=== PATIENT | male | born 1940 | race African-American/Black ===

== ENCOUNTER → 2016-07-21 | Outpatient (CLI) | payer MEDICARE, OTHER ==
[2016-07-21 11:29] LABS: ABSOLUTE EOSINOPHILS # (AUTO) 0.1 10^3/uL (0.0-0.6); ABSOLUTE LYMPHOCYTES (AUTO) 1.3 10^3/uL (0.5-4.7); ABSOLUTE MONOCYTES (AUTO) 0.7 10^3/uL (0.1-1.4); ABSOLUTE NEUT (AUTO) 6.6 10^3/uL (1.7-8.2); BASOPHILS % (AUTO) 0.4 % (0-2); HEMATOCRIT 43.9 % (37.9-51.0); HEMOGLOBIN 14.5 g/dL (13.5-17.0); HGB HCT DIFFERENCE -0.4; LYMPHOCYTES % (AUTO) 14.8 % (13-45); MEAN CORPUSCULAR HEMOGLOBIN 30.2 pg (27.0-33.4); MEAN CORPUSCULAR HGB CONC 33.1 g/dL (32.0-36.0); MEAN CORPUSCULAR VOLUME 91 fl (80-97); MONOCYTES % (AUTO) 8.5 % (3-13); RED BLOOD COUNT 4.81 10^6/uL (4.35-5.55); RED CELL DISTRIBUTION WIDTH 13.8 % (11.5-14.0); SEGMENTED NEUTROPHILS % (AUTO) 75.3 % (42-78); WHITE BLOOD COUNT 8.8 10^3/uL (4.0-10.5)
[2016-07-21 12:00] LABS: ALANINE AMINOTRANSFERASE 29 U/L (21-72); ALBUMIN 3.9 g/dL (3.5-5.0); ALKALINE PHOSPHATASE 79 U/L (38-126); ANION GAP 10 (5-19); ASPARTATE AMINO TRANSFERASE 23 U/L (17-59); BILIRUBIN,DIRECT 0.3 mg/dL (0.0-0.4); BILIRUBIN,TOTAL 0.7 mg/dL (0.2-1.3); BLOOD UREA NITROGEN 9 mg/dL (7-20); CALCIUM 9.3 mg/dL (8.4-10.2); CARBON DIOXIDE 30 mmol/L (22-30); CHLORIDE 108 mmol/L (98-107); CHOLESTEROL 154.13 mg/dL (0-200); CREATININE RESULT 0.95 mg/dL (0.52-1.25); Direct HDL 45 mg/dL (>40); GLUCOSE 92 mg/dL (75-110); MAGNESIUM 2.1 mg/dL (1.6-2.3); POTASSIUM 4.1 mmol/L (3.6-5.0); SODIUM 147.8 mmol/L (137-145); TOTAL PROTEIN 7.2 g/dL (6.3-8.2); TRIGLYCERIDES 90 mg/dL (<150)
[2016-07-21 12:14] LABS: DIRECT LDL 72 mg/dL (<100)
[2016-07-22 11:40] LABS: CREATININE URINE 283.5 mg/dL (Not Estab.); MICROALBUMIN URINE 93.8 ug/mL (Not Estab.)
== END ==
LOC: LAB 10:53
PROVIDERS: ATTEND Family Medicine Geriatric Medicine
DX: I10 Essential (primary) hypertension (principal); E78.5 Hyperlipidemia, unspecified; E11.9 Type 2 diabetes mellitus without complications; N40.1 Benign prostatic hyperplasia with lower urinary tract symptoms; J44.9 Chronic obstructive pulmonary disease, unspecified
CPT/HCPCS: 36415; 80053; 80061; 82043; 82570; 83036; 83735; 84153; 84443; 85025

== ENCOUNTER 2016-08-17 20:30 | Emergency (ER) | payer MEDICARE, OTHER ==
[2016-08-17 21:01] LABS: ABSOLUTE BASOPHILS # (AUTO) 0.1 10^3/uL (0.0-0.2); ABSOLUTE EOSINOPHILS # (AUTO) 0.1 10^3/uL (0.0-0.6); ABSOLUTE LYMPHOCYTES (AUTO) 1.4 10^3/uL (0.5-4.7); ABSOLUTE NEUT (AUTO) 7.8 10^3/uL (1.7-8.2); BASOPHILS % (AUTO) 0.6 % (0-2); EOSINOPHILS % (AUTO) 0.6 % (0-6); HEMATOCRIT 45.2 % (37.9-51.0); HEMOGLOBIN 14.8 g/dL (13.5-17.0); HGB HCT DIFFERENCE -0.8; LYMPHOCYTES % (AUTO) 13.6 % (13-45); MEAN CORPUSCULAR HEMOGLOBIN 29.9 pg (27.0-33.4); MEAN CORPUSCULAR HGB CONC 32.8 g/dL (32.0-36.0); MEAN CORPUSCULAR VOLUME 91 fl (80-97); RED BLOOD COUNT 4.95 10^6/uL (4.35-5.55); RED CELL DISTRIBUTION WIDTH 13.4 % (11.5-14.0); SEGMENTED NEUTROPHILS % (AUTO) 75.2 % (42-78); WHITE BLOOD COUNT 10.4 10^3/uL (4.0-10.5)
[2016-08-17 21:10] LABS: PROTHROMBIN TIME 15.6 SEC (11.4-15.4)
--- NOTE | 2016-08-17 21:12 | ER Document Report ---
ED General - General Chief Complaint: Chest Pain Stated Complaint: DIFFICULTY BREATHING Time Seen by Provider: 08/17/16 21:05 Mode of Arrival: Medic Information source: Patient, Relative, Friend TRAVEL OUTSIDE OF THE [place] IN LAST 30 DAYS: No - HPI Notes: Patient is a pleasant 75-year-old black male history of coronary artery disease and carotid artery stenosis and hypertension and dementia and coronary bypass surgery 6 vessel presents emergency department with his neighbor with report that at about 1900 he had chest pain that lasted about 30 minutes. He states pain was worse with movement through the chest, then the pain spontaneously resolved. The patient denied any belching cough shortness of breath nausea vomiting fever or chills. The patient has also had some progressive difficulty with his dementia and he lives alone currently, but his neighbor reports that he gets lost when he goes out driving, he has lost his truck several times and had to use his neighbor to help him find. The patient has difficulty getting to places. He has been noncompliant with his medications because he cannot remember where they are. He was unable to find his medications for EMS which brought him in. Patient recently was driving his truck with a flat tire and was unaware. The patient had a nebulizer machine at home, but on a previous visit to the emergency department one year ago he had forgotten how to use it. According to the neighbor, Adult Protective Services/social work has investigated the patient's home situation in the past, but the neighbor, Trenton Paredes, states he did not give all the information about the patient's forgetfulness and other issues as he did not want to anger the patient. I contacted patient's daughter, Tara Asif at [phone] to make her aware of the situation. Also discussed with other daughter, Brisa Desir, . Both daughters reported a gradual progression of dementia symptoms over the course of the last few years. The patient had a CT scan July 2014 which showed microvascular disease and progressive atrophy. When the patient left his house he did not bring the correct keys with him, and attempts may be made to force entry into the house to attempt to get his medications if they can be found. Patient on questioning appears well kept, clean, and has clean clothes on. He is alert to the year, place and person, but cannot remember the name of the president. Patient is unaware that he had a previous bypass surgery until he is reminded about the surgical scar. The patient initially stated he did not have any family that live close by, until he was reminded. Patient does not drink. He no longer smokes. - Related Data Allergies/Adverse Reactions: No Known Allergies Allergy (Verified 06/18/15 10:34) Past Medical History - General Information source: Patient Cannot obtain history due to: Dementia - Social History Smoking Status: Former Smoker Frequency of alcohol use: None Drug Abuse: None Lives with: Alone Family History: Reviewed & Not Pertinent - Past Medical History Cardiac Medical History: Reports: Hx Coronary Artery Disease - carotid artery stenosis, Hx Hypertension Denies: Hx Heart Attack Pulmonary Medical History: Denies: Hx Asthma, Hx Bronchitis, Hx COPD, Hx Pneumonia Neurological Medical History: Denies: Hx Cerebrovascular Accident, Hx Seizures Musculoskeltal Medical History: Reports Hx Arthritis Past Surgical History: Reports: Hx Cardiac Surgery - CABG - Immunizations Hx Diphtheria, Pertussis, Tetanus Vaccination: No Review of Systems - Review of Systems Notes: REVIEW OF SYSTEMS: CONSTITUTIONAL : Denies fever, chills, or sweats. Denies recent illness. EENT: Denies eye, ear, throat, or mouth pain or symptoms. Denies nasal or sinus congestion or discharge. Denies throat, tongue, or mouth swelling or difficulty swallowing. CARDIOVASCULAR: Denies palpitations or racing or irregular heart beat. Denies ankle edema. Patient currently denies chest pain. RESPIRATORY: Denies cough, cold, or chest congestion. Denies shortness of breath, difficulty breathing, or wheezing. GASTROINTESTINAL: Denies abdominal pain or distention. Denies nausea, vomiting , or diarrhea. Denies blood in vomitus, stools, or per rectum. Denies black, tarry stools. Denies constipation. GENITOURINARY: Denies difficulty urinating, painful urination, burning, frequency, blood in urine, or discharge. MUSCULOSKELETAL: Denies back or neck pain or stiffness. Denies joint pain or swelling. SKIN: Denies rash, lesions or sores. HEMATOLOGIC : Denies easy bruising or bleeding. LYMPHATIC: Denies swollen, enlarged glands. NEUROLOGICAL: Denies passing out or loss of consciousness. Denies dizziness or lightheadedness. Denies headache. Denies weakness or paralysis or loss of use of either side. Denies problems with gait or speech. Denies sensory loss, numbness, or tingling. Denies seizures. Patient is unaware of his altered state fully. He does admit that he is forgetful of certain things. PSYCHIATRIC: Denies anxiety or stress. Denies depression, suicidal ideation, or homicidal ideation. ALL OTHER SYSTEMS REVIEWED AND NEGATIVE. Dictation was performed using [employer] voice recognition software Physical Exam - Vital signs Vitals: Pulse Ox 97 08/17/16 20:32 - Notes Notes: PHYSICAL EXAMINATION: GENERAL: Well-appearing, well-nourished and in no acute distress. HEAD: Atraumatic, normocephalic. EYES: Pupils equal round and reactive to light, extraocular movements intact, sclera anicteric, conjunctiva are normal. ENT: Nares patent, oropharynx clear without exudates. Moist mucous membranes. NECK: Normal range of motion, supple without lymphadenopathy LUNGS: Breath sounds clear to auscultation bilaterally and equal. No wheezes rales or rhonchi. HEART: Tachy regular rhythm 112 with 1/6 systolic ejection murmur best auscultated over the apex. Midline surgical scar status post bypass surgery noted. ABDOMEN: Soft, nontender, nondistended abdomen. No guarding, no rebound. No masses appreciated. Musculoskeletal: Normal range of motion. No cyanosis. Trace bilateral lower extremity edema. NEUROLOGICAL: Cranial nerves grossly intact. Normal speech, normal gait. Normal sensory, motor exams patient is alert to Year and person and place, but does not know the president. Patient does not recall that he had a previous cardiac bypass surgery. He also has is having trouble recalling events of the evening earlier. PSYCH: Normal mood, normal affect. SKIN: Warm, Dry, normal turgor, no rashes or lesions noted. Course - Re-evaluation Re-evalutation: 08/17/16 22:44 Old records were reviewed which showed previously the patient was on medications Diovan, tamsulosin, Zocor, lisinopril, Aricept, diltiazem, atenolol , aspirin, nebulizers, albuterol. Patient gave the neighbor the wrong liu, so the neighbors contacted the daughter and they are going in now to try to gain access to the house to obtain information. 08/18/16 02:42 The daughter and the neighbor were unable to get into the house to obtain information and confirm the medications. Patient remained without complaint, and he forgot that he had chest pain earlier. At one point, the patient asked why he was in the emergency department. Initial troponin negative at 0.016 with 4 hour repeat troponin elevated at 0.128. Supplemental potassium given by mouth. Given the serial change, there is concern for unstable angina versus acute subendocardial MN. Discussion was undertaken with the patient's Family, and they reported that approximately 15 years ago he had 6 vessel coronary bypass surgery performed in [place]. On Patient had already received aspirin, and he was pain-free. Patient was given Lopressor 5 mg IV, which he tolerated well. Vital signs remained stable. Patient was given Lopressor 50 mg by mouth. Discussion was undertaken with the patient and family and they were in agreement with the patient being transferred to a definitive interventional cardiology facility. Discussion was undertaken with , and he accepted the patient in transfer to [facility]. Patient will also need an evaluation to determine competence and safety in returning home without further assistance. 08/18/16 02:50 - Vital Signs Vital signs: Temp Pulse Resp BP Pulse Ox 14 175/150 H 97 08/18/16 02:01 08/18/16 02:01 08/18/16 00:00 - Laboratory Result Diagrams: 08/17/16 20:45 08/17/16 20:45 Laboratory results interpreted by me: 08/17/16 08/17/16 20:45 20:45 PT 15.6 H Potassium 3.0 L* Creatinine 1.33 H Est GFR (Non-Af Amer) 52 L Glucose 133 H Creatine Kinase 259 H - EKG Interpretation by Mt EKG shows normal: Sinus rhythm Additional EKG results interpreted by me: 08/17/16 22:46 EKG as interpreted by ak showed sinus tachycardia heart rate of 114 with left anterior fascicular block. There was no gross evidence for acute MN or ischemia noted. One PVC noted. There is no significant change from previous EKG from 06/20/15 with exception of the tachycardia. Critical Care Note - Critical Care Note Total time excluding time spent on procedures (mins): 89 Discharge - Discharge Clinical Impression: Hypokalemia, Medically noncompliant, Elevated troponin level Chest pain Qualifiers: Chest pain type: unspecified Qualified Code(s): R07.9 - Chest pain, unspecified Dementia Qualifiers: Dementia type: unspecified type Dementia behavioral disturbance: without behavioral disturbance Qualified Code(s): F03.90 - Unspecified dementia without behavioral disturbance Clinical Impression: (Ruled Out): Dementia arising in the senium and presenium Condition: Stable Disposition: [facility]
[2016-08-17 21:23] LABS: ALANINE AMINOTRANSFERASE 37 U/L (21-72); ALBUMIN 3.9 g/dL (3.5-5.0); ALKALINE PHOSPHATASE 92 U/L (38-126); ANION GAP 16 (5-19); ASPARTATE AMINO TRANSFERASE 21 U/L (17-59); BILIRUBIN,DIRECT 0.4 mg/dL (0.0-0.4); BILIRUBIN,TOTAL 1.1 mg/dL (0.2-1.3); BLOOD UREA NITROGEN 12 mg/dL (7-20); CALCIUM 8.9 mg/dL (8.4-10.2); CARBON DIOXIDE 23 mmol/L (22-30); CHLORIDE 106 mmol/L (98-107); CREATINE KINASE 259 U/L (55-170); CREATININE RESULT 1.33 mg/dL (0.52-1.25); GLUCOSE 133 mg/dL (75-110); SODIUM 144.6 mmol/L (137-145)
--- NOTE | 2016-08-17 21:32 | RADIOLOGY REPORT (SQ) ---
EXAM DESCRIPTION: CHEST SINGLE VIEW COMPLETED DATE/TIME: 08/17/2016 9:17 pm REASON FOR STUDY: CP COMPARISON: June 2015 EXAM PARAMETERS: NUMBER OF VIEWS: One view. TECHNIQUE: Single frontal radiographic view of the chest acquired. RADIATION DOSE: NA LIMITATIONS: None. FINDINGS: LUNGS AND PLEURA: No opacities, masses or pneumothorax. No pleural effusion. MEDIASTINUM AND HILAR STRUCTURES: No masses. Contour normal. HEART AND VASCULAR STRUCTURES: Heart normal in size. Normal vasculature. BONES: No acute findings. HARDWARE: Patient is status post median sternotomy. OTHER: No other significant finding. IMPRESSION: NO ACUTE RADIOGRAPHIC FINDING IN THE CHEST. TECHNICAL DOCUMENTATION: JOB ID: [id number]
[2016-08-17 21:34] LABS: CREATINE KINASE MB 1.77 ng/mL (<4.55); TROPONIN I 0.016 ng/mL
--- NOTE | 2016-08-17 21:34 | EKG REPORT ---
SEVERITY:- ABNORMAL ECG - SINUS TACHYCARDIA VENTRICULAR PREMATURE COMPLEX LEFT ANTERIOR FASCICULAR BLOCK ANTERIOR Q WAVES, POSSIBLY DUE TO LVH : Confirmed by: Flaco Junior MD 17-Aug-2016 21:34:21
[2016-08-17 23:27] LABS: THYROID STIMULATING HORMONE 1.54 uIU/mL (0.47-4.68)
[2016-08-18] MEDS ORDERED: POTASSIUM CHLORIDE 10 MEQ TABLET.SA PO ONE (00:35)
[2016-08-18] MEDS ORDERED: METOPROLOL TARTRATE PF/INJ 5 MG/5 ML SDV IV ONE (01:38)
[2016-08-18] MEDS ORDERED: LORAZEPAM INJ 2 MG/1 ML VIAL IV ONE (01:44)
[2016-08-18] MEDS ORDERED: METOPROLOL TARTRATE 50 MG TABLET PO ONE (02:33)
[2016-08-18] MEDS ORDERED: METOPROLOL TARTRATE 25 MG TABLET PO ONE (03:16)
[2016-08-18 07:01] LABS: APPEARANCE,URINE CLOUDY; BILIRUBIN,URINE NEGATIVE (NEGATIVE); GLUCOSE, URINE NEGATIVE (NEGATIVE); KETONES,URINE NEGATIVE (NEGATIVE); LEUKOCYTE ESTERASE,URINE TRACE (NEGATIVE); NITRITE,URINE NEGATIVE (NEGATIVE); PROTEIN,URINE 100 mg/dL (NEGATIVE); URINE SPECIFIC GRAVITY 1.034
[2016-08-18 07:13] LABS: URINE BARBITURATES SCREEN NEGATIVE; URINE METHADONE SCREEN NEGATIVE; URINE OPIATES LOW NEGATIVE; URINE PHENCYCLIDINE SCREEN NEGATIVE
[2016-08-18 07:49] VITALS: BP 187/92
== END 2016-08-18 08:05 | disposition short-term general hospital (02) ==
LOC: ER 20:30
DX: R07.9 Chest pain, unspecified (principal); R74.8 Abnormal levels of other serum enzymes; E87.6 Hypokalemia; F03.90 Unspecified dementia, unspecified severity, without behavioral disturbance, psychotic disturbance, mood disturbance, and anxiety; T50.906A Underdosing of unspecified drugs, medicaments and biological substances, initial encounter; Z91.130 Patient's unintentional underdosing of medication regimen due to age-related debility; Z91.14 Patient's other noncompliance with medication regimen; I49.3 Ventricular premature depolarization; I44.4 Left anterior fascicular block; R01.1 Cardiac murmur, unspecified; R00.0 Tachycardia, unspecified; I25.10 Atherosclerotic heart disease of native coronary artery without angina pectoris; I10 Essential (primary) hypertension; Z60.2 Problems related to living alone; Z87.891 Personal history of nicotine dependence; Z95.1 Presence of aortocoronary bypass graft
CPT/HCPCS: 93005; 99291; 96374; 96375; 36415; 84439; 82553; 82550; 83735; 84443; 85025; 85610; 80053; 81001; 84484; 80307; 83880; 71010; 93010; J3490; J2060; A9270 ×2

== ENCOUNTER 2016-08-24 10:15 | Emergency (ER) | payer MEDICARE, OTHER ==
--- NOTE | 2016-08-24 10:37 | RADIOLOGY REPORT (SQ) ---
EXAM DESCRIPTION: CHEST SINGLE VIEW COMPLETED DATE/TIME: 08/24/2016 10:27 am REASON FOR STUDY: altered COMPARISON: 08/17/2016. EXAM PARAMETERS: NUMBER OF VIEWS: One view. TECHNIQUE: Single frontal radiographic view of the chest acquired. RADIATION DOSE: NA LIMITATIONS: None. FINDINGS: LUNGS AND PLEURA: No opacities, masses or pneumothorax. No pleural effusion. MEDIASTINUM AND HILAR STRUCTURES: No masses. Contour normal. HEART AND VASCULAR STRUCTURES: Heart normal in size. Normal vasculature. BONES: No acute findings. HARDWARE: Sternotomy wires and coronary bypass markers. OTHER: No other significant finding. IMPRESSION: NO ACUTE RADIOGRAPHIC FINDING IN THE CHEST. TECHNICAL DOCUMENTATION: JOB ID: [id number]
--- NOTE | 2016-08-24 10:38 | ER Document Report ---
ED General - General Stated Complaint: CONFUSION Time Seen by Provider: 08/24/16 10:19 Mode of Arrival: Ambulatory Information source: Patient Notes: 75 yr old male with dementia presents by EMS after being found by WENDI patel. Pt denies any concerns, states he was looking for his daughters house. TRAVEL OUTSIDE OF THE [place] IN LAST 30 DAYS: No - HPI Onset: Just prior to arrival Onset/Duration: Sudden Quality of pain: No pain Severity: None Pain Level: Denies Associated symptoms: None Exacerbated by: Denies Relieved by: Denies Similar symptoms previously: Yes Recently seen / treated by doctor: Yes - Related Data Allergies/Adverse Reactions: No Known Allergies Allergy (Verified 06/18/15 10:34) Past Medical History - Social History Smoking Status: Never Smoker Cigarette use (# per day): No Chew tobacco use (# tins/day): No Smoking Education Provided: No Family History: Reviewed & Not Pertinent - Past Medical History Cardiac Medical History: Reports: Hx Coronary Artery Disease - carotid artery stenosis, Hx Hypertension Denies: Hx Heart Attack Pulmonary Medical History: Denies: Hx Asthma, Hx Bronchitis, Hx COPD, Hx Pneumonia Neurological Medical History: Denies: Hx Cerebrovascular Accident, Hx Seizures Musculoskeltal Medical History: Reports Hx Arthritis Past Surgical History: Reports: Hx Cardiac Surgery - CABG - Immunizations Hx Diphtheria, Pertussis, Tetanus Vaccination: No Review of Systems - Review of Systems Notes: REVIEW OF SYSTEMS: CONSTITUTIONAL : Patient covered in sweat EENT: Denies eye, ear, throat, or mouth pain or symptoms. Denies nasal or sinus congestion or discharge. Denies throat, tongue, or mouth swelling or difficulty swallowing. CARDIOVASCULAR: Denies chest pain. Denies palpitations or racing or irregular heart beat. Denies ankle edema. RESPIRATORY: Denies cough, cold, or chest congestion. Denies shortness of breath, difficulty breathing, or wheezing. GASTROINTESTINAL: Denies abdominal pain or distention. Denies nausea, vomiting , or diarrhea. Denies blood in vomitus, stools, or per rectum. Denies black, tarry stools. Denies constipation. GENITOURINARY: Denies difficulty urinating, painful urination, burning, frequency, blood in urine, or discharge. MUSCULOSKELETAL: Denies back or neck pain or stiffness. Denies joint pain or swelling. SKIN: Denies rash, lesions or sores. HEMATOLOGIC : Denies easy bruising or bleeding. LYMPHATIC: Denies swollen, enlarged glands. NEUROLOGICAL: Denies confusion or altered mental status. Denies passing out or loss of consciousness. Denies dizziness or lightheadedness. Denies headache. Denies weakness or paralysis or loss of use of either side. Denies problems with gait or speech. Denies sensory loss, numbness, or tingling. Denies seizures. PSYCHIATRIC: Denies anxiety or stress. Denies depression, suicidal ideation, or homicidal ideation. ALL OTHER SYSTEMS REVIEWED AND NEGATIVE. Dictation was performed using [email or web address] recognition software PHYSICAL EXAMINATION: GENERAL: Well-appearing, well-nourished and in no acute distress. HEAD: Atraumatic, normocephalic. EYES: Pupils equal round and reactive to light, extraocular movements intact, sclera anicteric, conjunctiva are normal. ENT: Nares patent, oropharynx clear without exudates. Moist mucous membranes. NECK: Normal range of motion, supple without lymphadenopathy LUNGS: Breath sounds clear to auscultation bilaterally and equal. No wheezes rales or rhonchi. HEART: Regular rate and rhythm without murmurs ABDOMEN: Soft, nontender, nondistended abdomen. No guarding, no rebound. No masses appreciated. Musculoskeletal: Normal range of motion, no pitting or edema. No cyanosis. NEUROLOGICAL: Cranial nerves grossly intact. Normal speech, normal gait. Normal sensory, motor exams Oriented to person place but not time PSYCH: Normal mood, normal affect. SKIN: sweat Covered shirt noted Course - Re-evaluation Re-evalutation: 08/24/16 10:43 Patient's presentation is consistent with dementia related confusion, I contacted the patient's daughter and she will be coming shortly to see him, 08/24/16 13:54 Labwork notes a mildly elevated lactic acid however patient is afebrile has no complaints workup otherwise appears normal. I have very low suspicion that this is anything life-threatening, family member that I contact and is here as well as power of media services specialist, we will determine further care for the patient otherwise he is stable for discharge After performing a Medical Screening Examination, I estimate there is LOW risk for INTRACRANIAL HEMORRHAGE, ISCHEMIC CVA, MALIGNANT DYSRHYTHMIA, ACUTE CORONARY SYNDROME, MENINGITIS, PULMONARY EMBOLISM, or SEPSIS thus I consider the discharge disposition reasonable. I have reevaluated this patient multiple times and no significant life threatening changes are noted. The patient and I have discussed the diagnosis and risks, and we agree with discharging home with close follow-up with the understanding that symptoms and presentations can change. We also discussed returning to the Emergency Department immediately if new or worsening symptoms occur. We have discussed the symptoms which are most concerning (e.g., changing or worsening pain, weakness, vomiting, fever) that necessitate immediate return. - Laboratory Result Diagrams: 08/24/16 11:40 08/24/16 11:40 Laboratory results interpreted by me: 08/24/16 08/24/16 08/24/16 11:40 11:40 13:15 Seg Neutrophils % 78.8 H Lymphocytes % 11.7 L Lactic Acid 2.2 H Urine Protein 100 H Urine Ketones 20 H Urine Bilirubin SMALL H Urine Urobilinogen 4.0 H Ur Leukocyte Esterase SMALL H Discharge - Discharge Clinical Impression: Dementia Qualifiers: Dementia type: unspecified type Dementia behavioral disturbance: without behavioral disturbance Qualified Code(s): F03.90 - Unspecified dementia without behavioral disturbance Condition: Stable Instructions: Dementia ([facility]) Additional Instructions: Patient should no longer be allowed to drive due to worsening dementia. Referrals: DEVORAH GREGORY MD [ACTIVE STAFF] - Follow up tomorrow
[2016-08-24 11:54] LABS: ABSOLUTE BASOPHILS # (AUTO) 0.1 10^3/uL (0.0-0.2); ABSOLUTE LYMPHOCYTES (AUTO) 1.1 10^3/uL (0.5-4.7); ABSOLUTE MONOCYTES (AUTO) 0.8 10^3/uL (0.1-1.4); ABSOLUTE NEUT (AUTO) 7.1 10^3/uL (1.7-8.2); BASOPHILS % (AUTO) 0.6 % (0-2); EOSINOPHILS % (AUTO) 0.4 % (0-6); HEMATOCRIT 46.8 % (37.9-51.0); HEMOGLOBIN 15.7 g/dL (13.5-17.0); HGB HCT DIFFERENCE 0.3; LYMPHOCYTES % (AUTO) 11.7 % (13-45); MEAN CORPUSCULAR HEMOGLOBIN 30.3 pg (27.0-33.4); MEAN CORPUSCULAR HGB CONC 33.5 g/dL (32.0-36.0); MEAN CORPUSCULAR VOLUME 91 fl (80-97); MONOCYTES % (AUTO) 8.5 % (3-13); RED BLOOD COUNT 5.17 10^6/uL (4.35-5.55); RED CELL DISTRIBUTION WIDTH 13.4 % (11.5-14.0); SEGMENTED NEUTROPHILS % (AUTO) 78.8 % (42-78)
[2016-08-24 12:13] LABS: ALANINE AMINOTRANSFERASE 36 U/L (21-72); ALKALINE PHOSPHATASE 89 U/L (38-126); ASPARTATE AMINO TRANSFERASE 34 U/L (17-59); BILIRUBIN,DIRECT 0.4 mg/dL (0.0-0.4); BILIRUBIN,TOTAL 0.8 mg/dL (0.2-1.3); BLOOD UREA NITROGEN 10 mg/dL (7-20); CALCIUM 9.2 mg/dL (8.4-10.2); CARBON DIOXIDE 29 mmol/L (22-30); CREATININE RESULT 1.11 mg/dL (0.52-1.25); GLUCOSE 98 mg/dL (75-110); POTASSIUM 3.7 mmol/L (3.6-5.0); SODIUM 144.2 mmol/L (137-145); TOTAL PROTEIN 7.7 g/dL (6.3-8.2)
[2016-08-24 12:24] LABS: ANION GAP 11 (5-19); CHLORIDE 104 mmol/L (98-107)
[2016-08-24 13:02] LABS: PROTHROMBIN TIME 14.6 SEC (11.4-15.4)
[2016-08-24] MEDS ORDERED: LORAZEPAM 1 MG TABLET PO ONE (13:11)
[2016-08-24 13:50] LABS: APPEARANCE,URINE TURBID; BILIRUBIN,URINE SMALL (NEGATIVE); GLUCOSE, URINE NEGATIVE (NEGATIVE); KETONES,URINE 20 mg/dL (NEGATIVE); LEUKOCYTE ESTERASE,URINE SMALL (NEGATIVE); NITRITE,URINE NEGATIVE (NEGATIVE); PROTEIN,URINE 100 mg/dL (NEGATIVE); URINE SPECIFIC GRAVITY 1.033
--- NOTE | 2016-08-24 19:21 | EKG REPORT ---
SEVERITY:- ABNORMAL ECG - SINUS TACHYCARDIA VENTRICULAR TRIGEMINY ANTERIOR Q WAVES, POSSIBLY DUE TO LVH [facility] : Confirmed by: Flaco Junior MD 24-Aug-2016 19:20:33
== END 2016-08-24 14:12 | disposition home or self-care (01) ==
LOC: ER 10:15
DX: F03.90 Unspecified dementia, unspecified severity, without behavioral disturbance, psychotic disturbance, mood disturbance, and anxiety (principal); I25.10 Atherosclerotic heart disease of native coronary artery without angina pectoris; I10 Essential (primary) hypertension; Z95.1 Presence of aortocoronary bypass graft
CPT/HCPCS: 36415; 71010; 80053; 81001; 83605; 85025; 85610; 87040; 87086; 93005; 93010; 99285

== ENCOUNTER 2016-09-14 22:07 | Emergency (ER) | payer MEDICARE, OTHER ==
--- NOTE | 2016-09-14 23:24 | ER Document Report ---
ED General - General Chief Complaint: ETOH Abuse Stated Complaint: POSSIBLE ALTERED BEHAVIOR Time Seen by Provider: 09/14/16 23:18 Notes: 75-year-old male with known dementia and history of wandering presents brought in by police for being found outside of a [employer] restaurant. He knows the year and knows his name but was not sure how he ended up with rigors. He denies alcohol. Review of his chart shows that he has been here for multiple different issues including confusion. Lives alone. TRAVEL OUTSIDE OF THE [place] IN LAST 30 DAYS: No - Related Data Allergies/Adverse Reactions: No Known Allergies Allergy (Verified 06/18/15 10:34) Past Medical History - General Information source: Patient - Social History Smoking Status: Former Smoker Chew tobacco use (# tins/day): No Frequency of alcohol use: None Drug Abuse: None Family History: Reviewed & Not Pertinent - Past Medical History Cardiac Medical History: Reports: Hx Coronary Artery Disease - carotid artery stenosis, Hx Hypertension Denies: Hx Heart Attack Pulmonary Medical History: Denies: Hx Asthma, Hx Bronchitis, Hx COPD, Hx Pneumonia Neurological Medical History: Denies: Hx Cerebrovascular Accident, Hx Seizures Musculoskeltal Medical History: Reports Hx Arthritis Past Surgical History: Reports: Hx Cardiac Surgery - CABG - Immunizations Hx Diphtheria, Pertussis, Tetanus Vaccination: No Review of Systems - Review of Systems Notes: R REVIEW OF SYSTEMS GEN: Denies fever, chills, weight loss ENT: Denies sore throat, nasal discharge, ear pain EYES: Denies blurry vision, eye pain, discharge CV: Denies chest pain, palpitations, edema RESP: Denies cough, shortness of breath, wheezing GI: Denies abdominal pain, nausea, vomiting, diarrhea MSK: Denies joint pain/swelling, edema, SKIN: Denies rash, skin lesions LYMPH: Denies swollen glands/lymph nodes NEURO: Denies headache, focal weakness or numbness, dizziness PSYCH: Denies depression, suicidal or homicidal ideation PHYSICAL EXAMINATION General: No acute distress, well-nourished Head: Atraumatic, normocephalic ENT: Mouth normal, oropharynx moist, no exudates or tonsillar enlargement Eyes: Conjunctiva normal, pupils equal, lids normal Neck: No JVD, supple, no guarding CVS: Normal rate, regular rhythm, no murmurs Resp: No resp distress, equal and normal breath sounds bilaterally GI: Nondistended, soft, no tenderness to palpation, no rebound or guarding Ext: No deformities, no edema, normal range of motion in upper and lower ext Back: No CVA or midline TTP Skin: No rash, warm Lymphatic: No lymphadeopathy noted Neuro: Awake, alert. Face symmetric. GCS 15. Alert and oriented with name date. Physical Exam - Vital signs Vitals: Temp Pulse Resp BP Pulse Ox 97.3 F 94 16 144/73 H 97 09/14/16 22:13 09/14/16 22:13 09/14/16 22:13 09/14/16 22:13 09/14/16 22:13 Course - Re-evaluation Re-evalutation: 09/14/16 23:21 75-year-old male presents wandering. No dementia. He has normal vital signs were I think that infection or metabolic problem is much less likely and this is just waxing and waning of his dementia. Will attempt to contact family and and right home but I do not think he needs a workup - Vital Signs Vital signs: Temp Pulse Resp BP Pulse Ox 97.3 F 94 16 144/73 H 97 09/14/16 22:13 09/14/16 22:13 09/14/16 22:13 09/14/16 22:13 09/14/16 22:13 Discharge - Discharge Clinical Impression: Confusion Condition: Good Disposition: HOME, SELF-CARE Instructions: Dementia ([facility])
[2016-09-15 00:06] VITALS: BP 148/82
== END 2016-09-15 00:10 | disposition home or self-care (01) ==
LOC: ER 22:07
DX: F03.91 Unspecified dementia, unspecified severity, with behavioral disturbance (principal); Z91.83 Wandering in diseases classified elsewhere; I25.10 Atherosclerotic heart disease of native coronary artery without angina pectoris; I10 Essential (primary) hypertension; Z87.891 Personal history of nicotine dependence; Z95.1 Presence of aortocoronary bypass graft
CPT/HCPCS: 99285

== ENCOUNTER 2016-11-08 04:52 | Emergency (ER) | payer MEDICARE, OTHER ==
--- NOTE | 2016-11-08 05:40 | ER Document Report ---
HPI - HPI Patient complains to provider of: wandering Context: Patient is a 76-year-old male with a history of dementia that comes emergency department for chief complaint of wandering. Patient was found walking on the road at 4 AM this morning, he was brought in by EMS. I asked why he came to the hospital and he states "I do not know, they asked me if I wanted to go to the hospital, and I said yes". He states he has no complaints, he feels good, he is slightly hungry, he states that when he woke up he got up and he felt like he would want to go out and find something to do, he states he needs something to do, he states he started walking and he did not realize it was for him in the morning. He states he thought it was just before sun up. - CARDIOVASCULAR Cardiovascular: DENIES: Chest pain Past Medical History - General Information source: Patient - Social History Smoking Status: Never Smoker Frequency of alcohol use: None Drug Abuse: None Lives with: Family Family History: Reviewed & Not Pertinent - Past Medical History Cardiac Medical History: Reports: Hx Coronary Artery Disease - carotid artery stenosis, Hx Hypertension Denies: Hx Heart Attack Pulmonary Medical History: Denies: Hx Asthma, Hx Bronchitis, Hx COPD, Hx Pneumonia Neurological Medical History: Denies: Hx Cerebrovascular Accident, Hx Seizures Musculoskeltal Medical History: Reports Hx Arthritis Past Surgical History: Reports: Hx Cardiac Surgery - CABG - Immunizations Hx Diphtheria, Pertussis, Tetanus Vaccination: No Vertical Provider Document - CONSTITUTIONAL General Appearance: WD/WN, No Apparent Distress - INFECTION CONTROL TRAVEL OUTSIDE OF THE [place] IN LAST 30 DAYS: No - HEENT HEENT: Atraumatic, Normal ENT Exam, Normocephalic - NECK Neck: Normal Inspection - RESPIRATORY Respiratory: Breath Sounds Normal, No Respiratory Distress O2 Sat by Pulse Oximetry: 99 - CARDIOVASCULAR Cardiovascular: Regular Rate, Regular Rhythm - GI/ABDOMEN Gastrointestinal: Abdomen Soft, Abdomen Non-Tender - MUSCULOSKELETAL/EXTREMETIES Musculoskeletal/Extremeties: MAEW, FROM, Non-Tender - NEURO Level of Consciousness: Awake, Alert, Appropriate. negative: Inappropriate, Confused, Agitated, Sedated, Non-Verbal, Obtunded - DERM Integumentary: Warm, Dry, No Rash Course - Re-evaluation Re-evalutation: Patient is actually not confused, he is oriented to events, self, and location. He does intermittently make confused statements but based on his previous visits and notes this appears to be his baseline of waxing and waning dementia symptoms. Patient does not have a phone with him, he cannot remember his contact numbers, he does not have a contact listed in the system. Feeding patient, will consult adult protective caseworker. Patient states he is in full agreement with having a adult protective caseworker follow-up at his house, he states that he is ready to go home after he eats. He has money for a cab. He knows where he lives. - Vital Signs Vital signs: Temp Pulse Resp BP Pulse Ox 97.5 F 81 18 160/78 H 99 11/08/16 04:57 11/08/16 04:57 11/08/16 04:57 11/08/16 04:57 11/08/16 04:57 Discharge - Discharge Clinical Impression: Wandering Dementia Qualifiers: Dementia type: unspecified type Dementia behavioral disturbance: without behavioral disturbance Qualified Code(s): F03.90 - Unspecified dementia without behavioral disturbance Condition: Stable Disposition: HOME, SELF-CARE Additional Instructions: Your physical examination does not indicate any concerning abnormalities. We have a adult protective caseworker consult placed to try to evaluate your home situation and see if we can offer assistance. They will be following up with you. Follow up with your Provider. Return to the ED for any concerning symptoms or if something is not right. Forms: Elevated Blood Pressure
[2016-11-08 08:05] VITALS: BP 125/72
== END 2016-11-08 08:05 | disposition home or self-care (01) ==
LOC: ER 04:52
DX: F03.91 Unspecified dementia, unspecified severity, with behavioral disturbance (principal); Z91.83 Wandering in diseases classified elsewhere; I25.10 Atherosclerotic heart disease of native coronary artery without angina pectoris; I10 Essential (primary) hypertension; Z95.1 Presence of aortocoronary bypass graft
CPT/HCPCS: 99282

== ENCOUNTER 2016-11-15 19:27 | Emergency (ER) | payer MEDICARE, OTHER ==
--- NOTE | 2016-11-15 19:51 | ER Document Report ---
ED General - General Mode of Arrival: Ambulatory Information source: Patient TRAVEL OUTSIDE OF THE [place] IN LAST 30 DAYS: No - HPI Onset: This morning Associated symptoms: None Exacerbated by: Denies Relieved by: Denies Similar symptoms previously: No Recently seen / treated by doctor: No <KERVIN MOYA - Last Filed: 11/15/16 21:32> <ASUNCION AU - Last Filed: 11/16/16 00:24> <LIZ CARRANZA - Last Filed: 11/16/16 01:31> - General Stated Complaint: ALTERED MENTAL STATUS Time Seen by Provider: 11/15/16 19:34 Notes: Patient is a 76-year-old male that presents to the emergency department today with complaints of accidentally taking his medications twice today. Patient is demented at baseline. Patient's POA is at the bedside. The POA gave him his morning medications this morning as he normally does. Daughter at the bedside states she came over to see her father this afternoon and asked him if he had taken his medicine and he said no so she gave him another dose. Patient has no complaints. (KERVIN MOYA) - Related Data Allergies/Adverse Reactions: No Known Allergies Allergy (Verified 11/15/16 23:15) Past Medical History - General Information source: Patient - Social History Smoking Status: Former Smoker Cigarette use (# per day): No Frequency of alcohol use: None Drug Abuse: None Lives with: Alone Family History: Reviewed & Not Pertinent - Past Medical History Cardiac Medical History: Reports: Hx Coronary Artery Disease - carotid artery stenosis, Hx Hypertension Musculoskeltal Medical History: Reports Hx Arthritis Past Surgical History: Reports: Hx Cardiac Surgery - CABG - Immunizations Hx Diphtheria, Pertussis, Tetanus Vaccination: No <KERVIN MOYA - Last Filed: 11/15/16 21:32> Review of Systems - Review of Systems Constitutional: No symptoms reported EENT: No symptoms reported Cardiovascular: No symptoms reported Respiratory: No symptoms reported Gastrointestinal: No symptoms reported Genitourinary: No symptoms reported Male Genitourinary: No symptoms reported Musculoskeletal: No symptoms reported Skin: No symptoms reported Hematologic/Lymphatic: No symptoms reported Neurological/Psychological: No symptoms reported -: Yes All other systems reviewed and negative <KERVIN MOYA - Last Filed: 11/15/16 21:32> Physical Exam <KERVIN MOYA - Last Filed: 11/15/16 21:32> <ANGELYASUNCION - Last Filed: 11/16/16 00:24> <LIZ CARRANZA - Last Filed: 11/16/16 01:31> - Vital signs Vitals: Resp 16 11/15/16 19:47 - Notes Notes: Physical Exam: General: Alert, pleasantly demented HEENT: Normocephalic. Atraumatic. PERRL. Extraocular movements intact. Oropharynx clear. Neck: Supple. Non-tender. Respiratory: No respiratory distress. Clear and equal breath sounds bilaterally. Cardiovascular: Bradycardic, regular rhythm. Abdominal: Normal Inspection. Non-tender. No distension. Normal Bowel Sounds. Back: Non-tender. No deformity or step off. Extremities: Moves all four extremities. Upper extremities: Normal inspection. Normal ROM. Lower extremities: Normal inspection. No edema. Normal ROM. Neurological: Pleasantly demented. Normal speech. Psychological: Normal affect. Normal Mood. Skin: Warm. Dry. Normal color. (KERVIN MOYA) Course - Laboratory Result Diagrams: 11/15/16 20:05 11/15/16 20:05 <KERVIN MOYA - Last Filed: 11/15/16 21:32> - Laboratory Result Diagrams: 11/15/16 20:05 11/15/16 20:05 - EKG Interpretation by Me EKG shows normal: Sinus rhythm, Byron, Intervals, QRS Complexes. abnormal: ST-T Waves - Inferior and lateral T-wave inversions Rate: Bradycardia - 48 Byron/QRS: LAHB/LAFB When compared to previous EKG there are: Changes noted - The T-wave inversions are new compared to previous EKGs. <ASUNCION AU - Last Filed: 11/16/16 00:24> - Laboratory Result Diagrams: 11/15/16 20:05 11/15/16 20:05 <LIZ CARRANZA - Last Filed: 11/16/16 01:31> - Re-evaluation Re-evalutation: 11/16/16 01:30 Patient is currently sleeping. The tech just and me an EKG. EKG does have some very mild ST segment elevation patient in lead V2 as well as ST segment depression in the [address] Balbuena, patient's physician, informed me that the original EKG did look like this. That is why he got a troponin delta troponin. Both of these are negative. Being that he has 2 negative troponins I agree that these EKG changes do not reflect infarction. (LIZ CARRANZA) - Vital Signs Vital signs: Temp Pulse Resp BP Pulse Ox 44 L 14 121/69 100 11/15/16 20:04 11/15/16 23:45 11/15/16 23:45 11/15/16 23:45 - Laboratory Laboratory results interpreted by me: 11/15/16 11/15/16 20:05 20:05 RBC 4.34 L Plt Count 124 L Lymphocytes % 11.7 L Sodium 136.8 L Carbon Dioxide 21 L Glucose 127 H Creatine Kinase 205 H Discharge <KERVIN MOYA - Last Filed: 11/15/16 21:32> <ASUNCION AU - Last Filed: 11/16/16 00:24> <LIZ CARRANZA - Last Filed: 11/16/16 01:31> - Discharge Clinical Impression: Bradycardia Overdose Qualifiers: Encounter type: initial encounter Injury intent: accidental or unintentional Qualified Code(s): T50.901A - Poisoning by unspecified drugs, medicaments and biological substances, accidental (unintentional), initial encounter Hypotension Qualifiers: Hypotension type: hypotension due to drug Qualified Code(s): I95.2 - Hypotension due to drugs Condition: Stable Additional Instructions: Overdose: You have taken more medication than you should have. After your evaluation and care, it is felt that your overdose is not likely to be harmful or of any significant consequences to you and you are being discharged. In the future, you should be careful not to take more medications than what is prescribed for you. Although your overdose does not seem to be of any danger to you at this time, if you develop any unusual or unexpected symptoms after your discharge, you should return to the Emergency Department immediately for re-evaluation. DO NOT TAKE YOUR ATENOLOL DOSE THIS MORNING. YOU MAY TAKE YOUR OTHER MEDICATIONS. DRINK PLENTY OF FLUIDS. FOLLOW UP WITH DR. GREGORY. RETURN TO THE EMERGENCY ROOM IF ANY NEW OR WORSENING SYMPTOMS. Referrals: DEVORAH GREGORY MD [Primary Care Provider] - Follow up as needed Scribe Attestation: 11/15/16 21:49 I personally performed the services described in the documentation, reviewed and edited the documentation which was dictated to the scribe in my presence, and it accurately records my words and actions. (ASUNCION AU) Scribe Documentation - Scribe Written by Scribe:: Jackelyn Ly, 11/15/2016 2140 acting as scribe for :: Angely <KERVIN MOYA - Last Filed: 11/15/16 21:32>
[2016-11-15] MEDS ORDERED: NORMAL SALINE 1000 ML 1,000 ML IV ONE (19:53)
[2016-11-15 20:26] LABS: ABSOLUTE BASOPHILS # (AUTO) 0.1 10^3/uL (0.0-0.2); ABSOLUTE LYMPHOCYTES (AUTO) 1.2 10^3/uL (0.5-4.7); ABSOLUTE MONOCYTES (AUTO) 0.9 10^3/uL (0.1-1.4); ABSOLUTE NEUT (AUTO) 8.1 10^3/uL (1.7-8.2); BASOPHILS % (AUTO) 0.8 % (0-2); EOSINOPHILS % (AUTO) 0.5 % (0-6); HEMATOCRIT 39.4 % (37.9-51.0); HEMOGLOBIN 13.5 g/dL (13.5-17.0); HGB HCT DIFFERENCE 1.1; LYMPHOCYTES % (AUTO) 11.7 % (13-45); MEAN CORPUSCULAR HEMOGLOBIN 31.1 pg (27.0-33.4); MEAN CORPUSCULAR HGB CONC 34.2 g/dL (32.0-36.0); MEAN CORPUSCULAR VOLUME 91 fl (80-97); MONOCYTES % (AUTO) 9.1 % (3-13); RED BLOOD COUNT 4.34 10^6/uL (4.35-5.55); RED CELL DISTRIBUTION WIDTH 13.9 % (11.5-14.0); SEGMENTED NEUTROPHILS % (AUTO) 77.9 % (42-78); WHITE BLOOD COUNT 10.3 10^3/uL (4.0-10.5)
[2016-11-15 20:53] LABS: ALANINE AMINOTRANSFERASE 27 U/L (21-72); ALBUMIN 3.6 g/dL (3.5-5.0); ALKALINE PHOSPHATASE 72 U/L (38-126); ANION GAP 11 (5-19); ASPARTATE AMINO TRANSFERASE 26 U/L (17-59); BILIRUBIN,DIRECT 0.4 mg/dL (0.0-0.4); BILIRUBIN,TOTAL 1.1 mg/dL (0.2-1.3); BLOOD UREA NITROGEN 13 mg/dL (7-20); CALCIUM 9.2 mg/dL (8.4-10.2); CARBON DIOXIDE 21 mmol/L (22-30); CHLORIDE 105 mmol/L (98-107); CREATINE KINASE 205 U/L (55-170); CREATININE RESULT 1.17 mg/dL (0.52-1.25); GLUCOSE 127 mg/dL (75-110); MAGNESIUM 2.1 mg/dL (1.6-2.3); POTASSIUM 4.5 mmol/L (3.6-5.0); SODIUM 136.8 mmol/L (137-145); TOTAL PROTEIN 6.5 g/dL (6.3-8.2)
--- NOTE | 2016-11-16 04:46 | EKG REPORT ---
SEVERITY:- ABNORMAL ECG - SINUS RHYTHM LEFT ANTERIOR FASCICULAR BLOCK ANTERIOR INFARCT, POSSIBLY ACUTE . CORELATE CLINICALLY T INVERION IN INFERIOR LEADS AND LEAD V6 CONSISTENT WITH ISCHEMIA : Confirmed by: Heather Robertson MD 16-Nov-2016 04:32:50
[2016-11-16 08:51] VITALS: BP 153/76
--- NOTE | 2016-11-16 18:22 | EKG REPORT ---
SEVERITY:- ABNORMAL ECG - SINUS RHYTHM LEFT ANTERIOR FASCICULAR BLOCK PROBABLE ANTEROSEPTAL INFARCT, ACUTE ABNORMAL T, CONSIDER ISCHEMIA, DIFFUSE LEADS LATERAL LEADS ARE ALSO INVOLVED BORDERLINE PROLONGED QT INTERVAL : Confirmed by: Heather Robertson MD 16-Nov-2016 18:21:57
--- NOTE | 2016-11-16 18:23 | EKG REPORT ---
SEVERITY:- ABNORMAL ECG - SINUS BRADYCARDIA LEFT ANTERIOR FASCICULAR BLOCK PROBABLE ANTERIOR INFARCT, ACUTE ABNORMAL T, PROBABLE ISCHEMIA, INFERIOR LEADS BORDERLINE PROLONGED QT INTERVAL : Confirmed by: Heather Robertson MD 16-Nov-2016 18:22:41
== END 2016-11-16 10:37 | disposition home or self-care (01) ==
LOC: ER 19:27
DX: R00.1 Bradycardia, unspecified (principal); T50.901A Poisoning by unspecified drugs, medicaments and biological substances, accidental (unintentional), initial encounter; I95.2 Hypotension due to drugs; Z95.1 Presence of aortocoronary bypass graft
CPT/HCPCS: 93005; 99285; 96360; 36415; 82550; 83735; 85025; 80053; 84484; 93010; J7030

== ENCOUNTER → 2017-01-20 | Outpatient (CLI) | payer MEDICARE, OTHER ==
--- NOTE | 2017-01-20 15:52 | RADIOLOGY REPORT (SQ) ---
EXAM DESCRIPTION: FOOT LEFT 2 VIEWS COMPLETED DATE/TIME: 01/20/2017 3:06 pm REASON FOR STUDY: PAIN IN LEFT FOOT M79.672 PAIN IN LEFT FOOT COMPARISON: None. NUMBER OF VIEWS: Three views. TECHNIQUE: AP, lateral and oblique without weight bearing radiographic images acquired of the left f oot. LIMITATIONS: None. FINDINGS: MINERALIZATION: Normal. BONES: No acute fracture or dislocation. No worrisome bone lesions. Large plantar calcaneal spur. JOINTS: Joint space narrowing with sclerosis at the 1st tarsal metatarsal joint. No erosions. No pe ri-articular osteopenia. No chondrocalcinosis. SOFT TISSUES: No swelling. No calcifications. OTHER: No other significant finding. IMPRESSION: LARGE HEEL SPUR. DEGENERATIVE CHANGES AT THE 1ST TARSAL METATARSAL JOINT. TECHNICAL DOCUMENTATION: JOB ID: [id number] [facility]- All Rights Reserved
== END ==
LOC: OD 14:54
PROVIDERS: ATTEND Family Medicine
DX: M79.672 Pain in left foot (principal); M77.32 Calcaneal spur, left foot